=== PATIENT | female | born 1975 | race Asian ===

== ENCOUNTER 2018-10-09 16:30 | Emergency (ER) | payer OTHER ==
[~2018-10-09] VITALS: Ht 152.4 cm; Wt 52.0 kg
[2018-10-09] MEDS ORDERED: CIPRO500 MG PO (16:49)
[2018-10-09] MEDS ORDERED: NORCO 5-325 TA1 EACH PO (19:25)
== END 2018-10-09 19:35 | disposition home or self-care (01) ==
LOC: ED 16:30
DX: N83.202 Unspecified ovarian cyst, left side (principal); D25.9 Leiomyoma of uterus, unspecified
CPT/HCPCS: 76830; 76856; 80053; 81001; 84703; 85025; 99284-25